=== PATIENT | male | born 1995 | race Hispanic/Latino ===

== ENCOUNTER 2022-10-24 01:36 | Emergency (ER) | payer OTHER ==
[~2022-10-24] VITALS: Ht 160 cm; Wt 81.6 kg
[2022-10-24 04:02] VITALS: BP 125/60
[2022-10-24] MEDS ORDERED: ALBU90AE2 IH (04:17)
[2022-10-24] MEDS ORDERED: AZIT500T2 PO (04:17)
[2022-10-24] MEDS ORDERED: PRED20TA3 PO (04:17)
== END 2022-10-24 04:33 | disposition home or self-care (01) ==
LOC: EDH 01:36
DX: J20.9 Acute bronchitis, unspecified (principal); J45.909 Unspecified asthma, uncomplicated; Z20.822 Contact with and (suspected) exposure to COVID-19
CPT/HCPCS: 99284; 71046; 87635; 87880; 87804 ×2; C9803